=== PATIENT | male | born 1960 | race Caucasian/White ===

== ENCOUNTER → 2017-12-13 | Outpatient (CLI) | payer OTHER ==
[~2017-12-13] MED LIST: LISI20TA29 PO
[2017-12-13 09:34] LABS: LDL CHOLESTEROL 104 mg/dl
== END ==
LOC: LAB 07:13
PROVIDERS: ATTEND Family Medicine
DX: R73.01 Impaired fasting glucose (principal); I10 Essential (primary) hypertension; E78.5 Hyperlipidemia, unspecified; R94.6 Abnormal results of thyroid function studies
CPT/HCPCS: 36415; 82040; 82247; 82310; 82374; 82435; 82465; 82565; 82947; 83036; 83718; 84075; 84132; 84155; 84295; 84443; 84450; 84460; 84478; 84520

== ENCOUNTER → 2018-06-08 | Outpatient (CLI) | payer OTHER ==
[2018-06-08 06:05] LABS: LDL CHOLESTEROL 88 mg/dl
== END ==
LOC: LAB 05:30
PROVIDERS: ATTEND Family Medicine
DX: Z13.9 Encounter for screening, unspecified (principal)
CPT/HCPCS: 36415; 82040; 82247; 82310; 82374; 82435; 82465; 82565; 82947; 83718; 84075; 84132; 84153; 84155; 84295; 84443; 84450; 84460; 84478; 84520; 85027

== ENCOUNTER → 2018-10-29 | Outpatient (CLI) | payer OTHER ==
[2018-10-29 07:44] LABS: LDL CHOLESTEROL 102 mg/dl
== END ==
LOC: LAB 07:08
PROVIDERS: ATTEND Family Medicine
DX: R73.01 Impaired fasting glucose (principal); E78.5 Hyperlipidemia, unspecified; R94.6 Abnormal results of thyroid function studies; I10 Essential (primary) hypertension
CPT/HCPCS: 36415; 82040; 82247; 82310; 82374; 82435; 82465; 82565; 82947; 83036; 83718; 84075; 84132; 84155; 84295; 84443; 84450; 84460; 84478; 84520

== ENCOUNTER → 2019-04-15 | Outpatient (CLI) | payer OTHER ==
[2019-04-15 09:19] LABS: LDL CHOLESTEROL 98 mg/dl
== END ==
LOC: LAB 06:40
PROVIDERS: ATTEND Family Medicine
DX: I10 Essential (primary) hypertension (principal); E78.5 Hyperlipidemia, unspecified; R73.01 Impaired fasting glucose; R94.6 Abnormal results of thyroid function studies
CPT/HCPCS: 36415; 82040; 82247; 82310; 82374; 82435; 82465; 82565; 82947; 83036; 83718; 84075; 84132; 84155; 84295; 84443; 84450; 84460; 84478; 84520

== ENCOUNTER → 2019-05-17 | Outpatient (CLI) | payer OTHER ==
--- NOTE | 2019-05-17 15:26 | RADIOLOGY IMAGING REPORT ---
FACILITY: [facility] - [place] PATIENT NAME: Ez Gil : 1960 MR: [id number] V: [id number] EXAM DATE: ORDERING PHYSICIAN: MICHAEL WILD TECHNOLOGIST: Location: [facility] - [place] Patient: Ez Gil : 1960 Visit/Account:[id number] Date of Sevice: 05/17/2019 L-SPINE 2 OR 3 VIEW Indication: Low back pain. Comparison: None. Findings: The vertebral bodies and posterior elements are intact. There is mild disc space narrowing at L5-S1. There is facet arthropathy at L4-5 and L5-S1. IMPRESSION: Mild degenerative disc disease change L5-S1. Report Dictated By: Fahad Morales at 05/17/2019 3:16 PM Report E-Signed By: Fahad Morales at 05/17/2019 3:17 PM WSN:[id number]
== END ==
LOC: RAD 13:46
PROVIDERS: ATTEND Family Medicine
DX: M51.37 Other intervertebral disc degeneration, lumbosacral region (principal)
CPT/HCPCS: 72100

== ENCOUNTER → 2019-05-30 | Outpatient (CLI) | payer OTHER ==
--- NOTE | 2019-05-30 09:48 | RADIOLOGY IMAGING REPORT ---
FACILITY: [facility] PATIENT NAME: Ez Gil : 1960 MR: [id number] V: [id number] EXAM DATE: ORDERING PHYSICIAN: MICHAEL WILD TECHNOLOGIST: Location[place] [facility] [place] Patient: Ez Gil : 1960 Visit/Account:[id number] Date of Sevice: 05/30/2019 ANKLE 3 VIEW MIN RIGHT COMPARISONS: None. ADDITIONAL PERTINENT HISTORY: Right ankle pain and swelling at the Achilles tendon insertion. FINDINGS: Osseous structures: Negative. Joint spaces: Negative. Surrounding soft tissues: Soft tissue prominence of the distal aspects of the Achilles tendon. IMPRESSION: 1. Soft tissue prominence of the distal aspects of the Achilles tendon. 2. No acute appearing bony abnormalities. Report Dictated By: Dane Aldana MD at 05/30/2019 9:39 AM Report E-Signed By: Dane Aldana MD at 05/30/2019 9:40 AM WSN:[email or web address]
== END ==
LOC: RAD 08:58
PROVIDERS: ATTEND Family Medicine
DX: M25.571 Pain in right ankle and joints of right foot (principal); R22.41 Localized swelling, mass and lump, right lower limb